=== PATIENT | male | born 2005 | race Caucasian/White ===

== ENCOUNTER 2023-10-21 19:37 | Emergency (ER) | payer BC, OTHER ==
[2023-10-21] MEDS: Sodium Chloride 0.9% 10 ML Syringe FLUSH PRN (20:30)
[2023-10-21 20:47] LABS: BASOPHILS ABSOLUTE AUTO 0.05 10^3/uL (0.00-0.10); BASOPHILS PERCENT AUTO 0.3 % (0.0-1.0); EOSINOPHILS ABSOLUTE AUTO 0.02 10^3/uL (0.10-0.30); EOSINOPHILS PERCENT AUTO 0.1 % (1.0-3.0); HEMATOCRIT 41.9 % (40.0-52.0); HEMOGLOBIN 14.2 g/dL (13.0-17.0); IMMATURE GRAN ABSOLUTE AUTO 0.02 10^3/uL (0.00-0.50); IMMATURE GRAN PERCENT AUTO 0.1 % (0.0-5.0); LYMPHOCYTES ABSOLUTE AUTO 12.87 10^3/uL (1.00-4.00); LYMPHOCYTES PERCENT AUTO 79.9 % (20.0-40.0); MEAN CORPUSCULAR HEMOGLOBIN 28.1 pg (27.0-31.0); MEAN CORPUSCULAR HGB CONC 33.9 g/dL (32.0-36.0); MEAN PLATELET VOLUME 9.7 fL (7.4-10.4); MONOCYTES PERCENT AUTO 4.3 % (2.0-8.0); NEUTROPHILS ABSOLUTE AUTO 2.44 10^3/uL (2.50-7.00); NEUTROPHILS PERCENT AUTO 15.3 % (50.0-70.0); PLATELET COUNT,PLT 183 10^3/uL (150-400); RED BLOOD CELL COUNT 5.05 10^6/uL (4.50-6.00); RED CELL DISTRIBUTION WIDTH 12.4 % (11.5-14.5)
[2023-10-21] MEDS: Sodium Chloride 0.9% 1,000 ML IV ONE (20:50)
[2023-10-21 21:08] LABS: ALANINE AMINOTRANSFERASE,ALT 624 U/L (14-63); ALBUMIN 3.37 g/dL (3.40-5.00); ALKALINE PHOSPHATASE 304 U/L (46-116); ANION GAP 12.6 mmol/L (5-15); ASPARTATE AMNIOTRANSFERASE,AST 370 U/L (15-37); BILIRUBIN TOTAL 0.8 mg/dL (0.2-1.0); BLOOD UREA NITROGEN,BUN 11 mg/dL (7-18); CALCIUM 8.3 mg/dL (8.7-10.3); CARBON DIOXIDE,CO2 26.4 mmol/L (21.0-32.0); CHLORIDE,CL 101 mmol/L (98-107); CREATININE 0.89 mg/dL (0.51-1.17); GLUCOSE RANDOM 104 mg/dL (70-140); PROTEIN TOTAL,TP 6.8 g/dL (6.4-8.2); SODIUM,NA 136 mmol/L (136-145)
[2023-10-21 21:11] LABS: ESTIMATED GFR 126 mL/min (>=60)
[2023-10-21 21:14] LABS: MONONUCLEOSIS SCREEN POSITIVE (NEGATIVE)
== END 2023-10-21 22:31 | disposition home or self-care (01) ==
LOC: KA.ED 19:37
DX: B27.00 Gammaherpesviral mononucleosis without complication (principal); R74.8 Abnormal levels of other serum enzymes; R53.81 Other malaise; Z88.0 Allergy status to penicillin; Z20.822 Contact with and (suspected) exposure to COVID-19
CPT/HCPCS: 71045; 80053; 85025; 86308; 87651-QW; 96360; 99284; 99284-25; J3490; J7030; U0002